=== PATIENT | male | born 1940 | race Caucasian/White ===

== ENCOUNTER 2016-12-10 07:27 | Inpatient (IN) | payer BC, OTHER ==
[~2016-12-10] VITALS: Ht 172.7 cm; Wt 76.6 kg
[2016-12-10] MEDS ORDERED: SODIUM CHLORIDE 0.9% 1,000 ML IV ONE (07:51)
[2016-12-10 08:54] LABS: CONDITION Y; Hematocrit 43.6 % (41.0-53.0); Hemoglobin 14.6 g/dL (13.5-17.5); Mean Corpuscular Hemoglobin 29.4 pg (28.0-32.0); Mean Corpuscular Hgb Conc. 33.5 g/dL (32.0-36.0); Mean Corpuscular Volume 87.6 fL (80.0-100.0); Mean Platelet Volume 7.9 fL (7.4-10.4); Platelet Count (auto) 269 10^3/uL (140-450); SUSPECT SEE PRINTOUT; White Blood Cell 18.9 10^3/uL (4.4-10.8)
[2016-12-10 09:04] LABS: Metamyelocytes % 0; Myelocytes % 0; Promyelocytes % 0; Reactive Lymphocytes 0
[2016-12-10 09:12] LABS: Albumin 3.4 g/dL (3.4-5.0); BUN/Creatinine Ratio 22.7; Calcium 8.4 mg/dL (8.5-10.1); Magnesium 2.2 mg/dL (1.6-2.6); Potassium 4.1 mmol/L (3.5-5.1)
[2016-12-10 09:15] LABS: Bilirubin, Total 0.6 mg/dL (0.2-1.0); Total Protein 7.3 g/dL (6.4-8.2)
[2016-12-10 09:30] LABS: Urine Bilirubin Negative (Negative); Urine Blood Negative /uL (Negative); Urine Color Yellow (Yellow); Urine Glucose Normal (Normal); Urine Nitrite Negative (Negative); Urine RBC 2 /hpf (0 - 3); Urine Urobilinogen Normal (Negative)
[2016-12-10 09:39] LABS: Urine Ketone 2+ (Negative)
[2016-12-10 10:21] LABS: Platelet Estimate Adequate
[2016-12-10] MEDS ORDERED: cefTRIAXone 1GM/50ML D5W 50 ML IV ONE (11:15)
[2016-12-10] MEDS ORDERED: NITROGLYCERIN 0.4 MG SL TAB SL PRN (12:00)
[2016-12-10] MEDS ORDERED: MORPHINE SULF INJ 2 MG/ML SYRINGE 1ML IV PRN (12:00)
[2016-12-10] MEDS: SOD CHL 0.45% 1,000 ML IV SCH (12:24)
[2016-12-10] MEDS: LEVOFLOXACIN 500MG 100 ML IV SCH (12:25)
[2016-12-10 13:55] VITALS: BP 140/74
[2016-12-10] MEDS ORDERED: ACETAMINOPHEN 325 MG TAB PO PRN (17:15)
[2016-12-10 17:23] VITALS: BP 133/65
[2016-12-10] MEDS: ENOXAPARIN SOD 40 MG/0.4 ML SYRINGE SC SCH (19:02)
[2016-12-10 21:51] VITALS: BP 127/70
[2016-12-11] MEDS: SOD CHL 0.45% 1,000 ML IV SCH ×2 (01:20→05:43)
[2016-12-11 04:54] VITALS: BP 101/63
[2016-12-11 06:48] LABS: Basophils # (auto) 0 uL; Basophils % (auto) 0.2 % (0.0-2.0); CONDITION Y; Eosinophils # (auto) 0 uL; Eosinophils % (auto) 0.4 % (0.0-7.0); Hemoglobin 13.4 g/dL (13.5-17.5); Lymphocytes # (auto) 1.1 uL; Mean Corpuscular Hemoglobin 29.4 pg (28.0-32.0); Mean Corpuscular Hgb Conc. 33.4 g/dL (32.0-36.0); Mean Corpuscular Volume 88.1 fL (80.0-100.0); Mean Platelet Volume 8.1 fL (7.4-10.4); Monocytes # (auto) 0.6 uL; Monocytes % (auto) 4.5 % (0.0-12.0); Neutrophils # (auto) 10.7 uL; Neutrophils % (auto) 85.9 % (37.0-80.0); Platelet Count (auto) 248 10^3/uL (140-450); White Blood Cell 12.4 10^3/uL (4.4-10.8)
[2016-12-11 07:11] LABS: BUN/Creatinine Ratio 19.4; Calcium 8.2 mg/dL (8.5-10.1); Magnesium 2.2 mg/dL (1.6-2.6); Potassium 3.9 mmol/L (3.5-5.1)
[2016-12-11 07:50] VITALS: BP 121/71
[2016-12-11 09:00] VITALS: BP 121/71
[2016-12-11] MEDS: LEVOFLOXACIN 500MG 100 ML IV SCH (10:03)
[2016-12-11] MEDS: ENOXAPARIN SOD 40 MG/0.4 ML SYRINGE SC SCH (10:03)
[2016-12-11 13:00] VITALS: BP 117/80
[2016-12-11] MEDS ORDERED: ALB5IS NEB (13:17)
[2016-12-11] MEDS ORDERED: POTA-167 PO (13:17)
[2016-12-11] MEDS ORDERED: TEMA30CA PO (13:17)
[2016-12-11] MEDS ORDERED: CARI-316 PO (13:17)
[2016-12-11] MEDS ORDERED: FLAXOIL3 OR (13:17)
[2016-12-11] MEDS ORDERED: TAMS0.4C36 PO (13:17)
[2016-12-11] MEDS ORDERED: FLUT250M2 INH (13:17)
[2016-12-11] MEDS ORDERED: MULTCHW OR (13:17)
[2016-12-11] MEDS ORDERED: LORA-622 PO (13:17)
[2016-12-11] MEDS ORDERED: LOSA50TA6 PO (13:17)
[2016-12-11 17:00] VITALS: BP 142/82
[2016-12-11 18:29] VITALS: BP 142/82
== END 2016-12-11 20:30 | disposition home health service (06) | DRG 195 ==
LOC: EDBD 07:27 → EDSEX 07:27 → ER 07:27 → TELE 07:28 → TELE-CENTR 14:34
PROVIDERS: ADMIT Internal Medicine; ATTEND Internal Medicine
DX: J18.1 Lobar pneumonia, unspecified organism (principal); G89.4 Chronic pain syndrome
CPT/HCPCS: 36415; 71010; 80048; 80053; 81001; 83735; 84443; 85007; 85025; 85027; 87040; 93005; 96361; 96365; 96366; J0696; J1956

== ENCOUNTER 2017-07-07 11:07 | Emergency (ER) | payer BC ==
[~2017-07-07] VITALS: Ht 170.2 cm; Wt 68.0 kg
[~2017-07-07 11:07] MED LIST: ALB5IS NEB; CARI-316 PO; FLAXOIL3 OR; FLUT250M2 INH; LORA-622 PO; LOSA50TA6 PO; MULTCHW OR; POTA-167 PO; TAMS0.4C36 PO; TEMA30CA PO
[2017-07-07] MEDS ORDERED: SODIUM CHLORIDE 0.9% 1,000 ML IV ONE (11:19)
[2017-07-07 12:09] LABS: Basophils # (auto) 0 uL; Basophils % (auto) 0.3 % (0.0-2.0); Eosinophils # (auto) 0 uL; Hematocrit 43.6 % (41.0-53.0); Hemoglobin 14.6 g/dL (13.5-17.5); Lymphocytes # (auto) 0.5 uL; Lymphocytes % (auto) 7.3 % (10.0-50.0); Mean Corpuscular Hgb Conc. 33.4 g/dL (32.0-36.0); Mean Corpuscular Volume 86.9 fL (80.0-100.0); Monocytes # (auto) 0.6 uL; Monocytes % (auto) 8.3 % (0.0-12.0); Neutrophils # (auto) 5.7 uL; Neutrophils % (auto) 84.1 % (37.0-80.0); Platelet Count (auto) 203 10^3/uL (140-450); Red Blood Cells 5.02 10^6/uL (4.5-5.90); Red Cell Distribution Width 16.3 % (11.8-14.3); White Blood Cell 6.8 10^3/uL (4.4-10.8)
[2017-07-07 12:21] LABS: INR 1.01 (0.9-1.15); Partial Thromboplastin Time 29.3 sec (22.64-33.71)
[2017-07-07 12:23] LABS: Alanine Aminotransferase 19 U/L (16-61); Albumin 3.4 g/dL (3.4-5.0); Anion Gap 7 (5-15); Aspartate Aminotransferase 21 U/L (15-37); BUN/Creatinine Ratio 15.9; Blood Urea Nitrogen 14 mg/dL (7-18); Calcium 8.9 mg/dL (8.5-10.1); Carbon Dioxide 30 mmol/L (21-32); Chloride 102 mmol/L (98-107); GFR African American 108 mL/min; GFR Non-African American 89 mL/min; Glucose 91 mg/dL (74-106); Magnesium 2.2 mg/dL (1.6-2.6); Potassium 4.4 mmol/L (3.5-5.1); Sodium 139 mmol/L (136-145)
[2017-07-07 12:29] LABS: Alkaline Phosphatase 60 U/L (45-117); Bilirubin, Total 0.3 mg/dL (0.2-1.0); Total Protein 7.3 g/dL (6.4-8.2)
[2017-07-07] MEDS ORDERED: cefTRIAXone 1GM/10ml IVPUSH 10 ML IV ONE (13:00)
[2017-07-07] MEDS ORDERED: POTA10TA51 PO (13:06)
[2017-07-07] MEDS ORDERED: LORA5SYP23 PO (13:06)
[2017-07-07] MEDS ORDERED: MULT-928 PO (13:06)
[2017-07-07] MEDS ORDERED: LOSA50TA6 PO (13:06)
[2017-07-07] MEDS ORDERED: FLUT500M2 INH (13:06)
[2017-07-07] MEDS ORDERED: methylPREDNISolone SOD SUCC 125 MG/2 ML VL IV ONE (13:45)
[2017-07-07] MEDS ORDERED: ALBUTEROL SULF 2.5 MG/0.5ML(0.5%) NEB SOLN NEB ONE (13:45)
[2017-07-07] MEDS ORDERED: IPRATROPIUM BROM 0.5 MG/2.5ML INH SOL NEB ONE (13:45)
[2017-07-07 16:06] LABS: Urine Bacteria NONE SEEN /hpf (None Seen); Urine Blood Negative /uL (Negative); Urine Mucus FEW (None Seen); Urine Specific Gravity 1.031 (1.001-1.035); Urine WBC 2 /hpf (0 - 3)
[2017-07-07 17:02] VITALS: BP 113/59
== END 2017-07-07 17:06 | disposition home or self-care (01) ==
LOC: EDBD 11:07 → ER 11:07
DX: J44.1 Chronic obstructive pulmonary disease with (acute) exacerbation (principal); J18.1 Lobar pneumonia, unspecified organism; R42 Dizziness and giddiness; Z79.899 Other long term (current) drug therapy
CPT/HCPCS: 36415; 70450; 71250; 74176; 80053; 81001; 82550; 83735; 83880; 84484; 85025; 85610; 85730; 87040; 93005; 94640; 96361; 96374; 96375; 99285; J2930; J7030

== ENCOUNTER 2017-07-09 18:38 | Inpatient (IN) | payer BC ==
[~2017-07-09] VITALS: Ht 170.2 cm; Wt 76.8 kg
[~2017-07-09 18:38] MED LIST changes: +FLUT500M2 INH; +LORA5SYP23 PO; +MULT-928 PO; +POTA10TA51 PO
[2017-07-09 19:45] LABS: Basophils # (auto) 0 uL; Basophils % (auto) 0.5 % (0.0-2.0); Eosinophils # (auto) 0 uL; Hematocrit 45.1 % (41.0-53.0); Hemoglobin 14.1 g/dL (13.5-17.5); Lymphocytes # (auto) 0.8 uL; Lymphocytes % (auto) 8.9 % (10.0-50.0); Mean Corpuscular Hemoglobin 29.1 pg (28.0-32.0); Mean Corpuscular Hgb Conc. 31.3 g/dL (32.0-36.0); Mean Corpuscular Volume 92.9 fL (80.0-100.0); Monocytes # (auto) 0.6 uL; Monocytes % (auto) 6.8 % (0.0-12.0); Neutrophils # (auto) 7.5 uL; Neutrophils % (auto) 83.8 % (37.0-80.0); Platelet Count (auto) 182 10^3/uL (140-450); Red Blood Cells 4.85 10^6/uL (4.5-5.90); Red Cell Distribution Width 17.9 % (11.8-14.3); White Blood Cell 8.9 10^3/uL (4.4-10.8)
[2017-07-09] MEDS ORDERED: methylPREDNISolone SOD SUCC 125 MG/2 ML VL IV ONE (20:00)
[2017-07-09] MEDS ORDERED: cefTRIAXone 1GM/10ml IVPUSH 10 ML IV ONE (20:00)
[2017-07-09 20:13] LABS: BUN/Creatinine Ratio 25.3; Bilirubin, Total 0.3 mg/dL (0.2-1.0); Calcium 8.2 mg/dL (8.5-10.1); Magnesium 2.8 mg/dL (1.6-2.6); Potassium 4.2 mmol/L (3.5-5.1); Total Protein 6.9 g/dL (6.4-8.2)
[2017-07-09] MEDS ORDERED: ASPirin 81 mg TAB PO ONE (20:30)
[2017-07-09 20:59] LABS: Urine Bacteria NONE SEEN /hpf (None Seen); Urine Blood Negative /uL (Negative); Urine Mucus FEW (None Seen); Urine Specific Gravity 1.029 (1.001-1.035); Urine WBC 2 /hpf (0 - 3)
[2017-07-09] MEDS ORDERED: MORPHINE SULFATE 4 MG/ML SYR/VIAL IV PRN (21:00)
[2017-07-09] MEDS ORDERED: SOD CHL 0.45% 1,000 ML IV ONE (21:00)
[2017-07-09] MEDS ORDERED: NITROGLYCERIN 0.4 MG SL TAB SL PRN (21:00)
[2017-07-09] MEDS ORDERED: LEVOFLOXACIN 500MG 100 ML IV ONE (21:56)
[2017-07-09 22:00] VITALS: BP 101/60
[2017-07-09 22:06] VITALS: BP 101/60
[2017-07-09 23:58] VITALS: BP 120/65
[2017-07-10] VITALS (7 sets, daily range): BP systolic 88–116; BP diastolic 53–69
[2017-07-10] MEDS: ALBUTEROL SULF 2.5 MG/0.5ML(0.5%) NEB SOLN NEB SCH ×4 (00:30→19:25)
[2017-07-10] MEDS: IPRATROPIUM BROM 0.5 MG/2.5ML INH SOL NEB SCH ×4 (06:55→19:25)
[2017-07-10 06:59] LABS: Basophils # (auto) 0 uL; Basophils % (auto) 0.1 % (0.0-2.0); Eosinophils # (auto) 0 uL; Hematocrit 39.9 % (41.0-53.0); Hemoglobin 13.2 g/dL (13.5-17.5); Lymphocytes # (auto) 0.3 uL; Lymphocytes % (auto) 4.4 % (10.0-50.0); Mean Corpuscular Hemoglobin 29.5 pg (28.0-32.0); Mean Corpuscular Hgb Conc. 33.2 g/dL (32.0-36.0); Monocytes # (auto) 0.1 uL; Monocytes % (auto) 1.8 % (0.0-12.0); Neutrophils # (auto) 6.4 uL; Neutrophils % (auto) 93.7 % (37.0-80.0); Nucleated Red Blood Cells % 0.1 %; Platelet Count (auto) 191 10^3/uL (140-450); Red Blood Cells 4.48 10^6/uL (4.5-5.90); Red Cell Distribution Width 16.5 % (11.8-14.3); White Blood Cell 6.8 10^3/uL (4.4-10.8)
[2017-07-10 07:08] LABS: Potassium 4.6 mmol/L (3.5-5.1)
[2017-07-10 07:09] LABS: INR 0.95 (0.9-1.15); Prothrombin Time 10.4 sec (9.37-12.3)
[2017-07-10 07:12] LABS: Albumin 2.8 g/dL (3.4-5.0); BUN/Creatinine Ratio 33.3; Calcium 8.5 mg/dL (8.5-10.1)
[2017-07-10 07:30] LABS: Bilirubin, Total 0.2 mg/dL (0.2-1.0); Total Protein 6.6 g/dL (6.4-8.2)
[2017-07-10] MEDS: LOSARTAN POTASSIUM 50 MG TAB PO SCH (10:00)
[2017-07-10] MEDS: TAMSULOSIN HYDROCHLORIDE 0.4 MG CAP PO SCH (11:44)
[2017-07-10] MEDS: MULTIPLE VITAMINS W/ MINERALS TAB PO SCH (11:44)
[2017-07-10] MEDS: PANTOPRAZOLE 40 MG TAB PO SCH (11:45)
[2017-07-10] MEDS: LORATADINE 10 MG TAB PO SCH (11:45)
[2017-07-10] MEDS: LEVOFLOXACIN 500MG 100 ML IV SCH (11:45)
[2017-07-10] MEDS: methylPREDNISolone SOD SUCC 40 MG/ML VL IV SCH ×3 (13:02→21:46)
[2017-07-11] MEDS: ALBUTEROL SULF 2.5 MG/0.5ML(0.5%) NEB SOLN NEB SCH ×4 (00:31→19:11)
[2017-07-11] MEDS: IPRATROPIUM BROM 0.5 MG/2.5ML INH SOL NEB SCH ×4 (00:31→19:11)
[2017-07-11 05:00] VITALS: BP 113/68
[2017-07-11] MEDS: methylPREDNISolone SOD SUCC 40 MG/ML VL IV SCH ×3 (05:47→22:29)
[2017-07-11] MEDS ORDERED: IODIXANOL 320MG/ML 100ML BTL IV ONE (07:12)
[2017-07-11] MEDS ORDERED: LIDOCAINE 2%HCL (LOCAL ANESTH.) INJ 20ML MDV ONE (07:12)
[2017-07-11] MEDS ORDERED: ASPirin 325 MG TAB PO ONE (07:15)
[2017-07-11 08:00] VITALS: BP 112/68
[2017-07-11 09:00] VITALS: BP_SYST 112; BP_SYST 115; BP_DIAS 68; BP_DIAS 70
[2017-07-11] MEDS ORDERED: ANGIOMAX 250 MG VIAL IV ONE (09:02)
[2017-07-11] MEDS ORDERED: VERAPAMIL 2.5MG/ML INJ 2ML VIAL IV ONE (09:02)
[2017-07-11] MEDS ORDERED: SODIUM CHL 0.9% 0 ML ONE (09:03)
[2017-07-11] MEDS ORDERED: MIDAZOLAM HCL 1MG/1ML-2 ML VIAL ONE (09:03)
[2017-07-11] MEDS ORDERED: fentaNYL CITRATE 100 MCG/2 ML VL ONE (09:03)
[2017-07-11] MEDS ORDERED: HEPARIN SODIUM (PORCINE) 5000 UNITS/ML 1ML VIAL ONE (09:23)
[2017-07-11] MEDS: PANTOPRAZOLE 40 MG TAB PO SCH (11:40)
[2017-07-11] MEDS: LEVOFLOXACIN 500MG 100 ML IV SCH (11:40)
[2017-07-11] MEDS: TAMSULOSIN HYDROCHLORIDE 0.4 MG CAP PO SCH (11:41)
[2017-07-11] MEDS: MULTIPLE VITAMINS W/ MINERALS TAB PO SCH (11:41)
[2017-07-11] MEDS: LOSARTAN POTASSIUM 50 MG TAB PO SCH (11:42)
[2017-07-11] MEDS: LORATADINE 10 MG TAB PO SCH (11:42)
[2017-07-11 12:44] LABS: Basophils # (auto) 0 uL; Basophils % (auto) 0.6 % (0.0-2.0); Eosinophils # (auto) 0 uL; Hematocrit 44.5 % (41.0-53.0); Hemoglobin 14.3 g/dL (13.5-17.5); Lymphocytes # (auto) 0.5 uL; Lymphocytes % (auto) 5.9 % (10.0-50.0); Mean Corpuscular Hemoglobin 28.7 pg (28.0-32.0); Mean Corpuscular Volume 89.7 fL (80.0-100.0); Monocytes # (auto) 0.3 uL; Monocytes % (auto) 3.9 % (0.0-12.0); Neutrophils # (auto) 7.6 uL; Neutrophils % (auto) 89.6 % (37.0-80.0); Nucleated Red Blood Cells % 0.3 %; Platelet Count (auto) 206 10^3/uL (140-450); Red Blood Cells 4.97 10^6/uL (4.5-5.90); Red Cell Distribution Width 16.4 % (11.8-14.3); White Blood Cell 8.4 10^3/uL (4.4-10.8)
[2017-07-11 13:03] LABS: BUN/Creatinine Ratio 26.6; Calcium 8.7 mg/dL (8.5-10.1); Potassium 4.8 mmol/L (3.5-5.1)
[2017-07-11] MEDS ORDERED: PRE5T GT (14:30)
[2017-07-11] MEDS ORDERED: LEVO500T21 PO (14:30)
[2017-07-11 17:00] VITALS: BP 129/77
[2017-07-12 05:12] VITALS: BP 123/71
[2017-07-12] MEDS: methylPREDNISolone SOD SUCC 40 MG/ML VL IV SCH ×2 (05:31→13:41)
[2017-07-12] MEDS: ALBUTEROL SULF 2.5 MG/0.5ML(0.5%) NEB SOLN NEB SCH ×3 (06:15→11:45)
[2017-07-12] MEDS: IPRATROPIUM BROM 0.5 MG/2.5ML INH SOL NEB SCH ×3 (06:15→11:45)
[2017-07-12 08:30] VITALS: BP 117/67
[2017-07-12] MEDS ORDERED: ASPirin 81 mg TAB PO SCH (10:00)
[2017-07-12] MEDS ORDERED: LEVOFLOXACIN 500 MG TAB PO SCH (10:00)
[2017-07-12] MEDS: LOSARTAN POTASSIUM 50 MG TAB PO SCH (11:04)
[2017-07-12] MEDS: MULTIPLE VITAMINS W/ MINERALS TAB PO SCH (11:05)
[2017-07-12] MEDS: LORATADINE 10 MG TAB PO SCH (11:05)
[2017-07-12] MEDS: PANTOPRAZOLE 40 MG TAB PO SCH (11:05)
[2017-07-12] MEDS: TAMSULOSIN HYDROCHLORIDE 0.4 MG CAP PO SCH (11:05)
[2017-07-12 12:43] VITALS: BP 138/75
[2017-07-12 12:53] VITALS: BP 117/61
== END 2017-07-12 15:05 | disposition home or self-care (01) | DRG 280 ==
LOC: EDUNIT# 18:38 → ER 18:38 → TELE 18:39 → TELE-WESTW 22:07
PROVIDERS: ADMIT Internal Medicine; ATTEND Internal Medicine
PROC: 4A023N7 Measurement of Cardiac Sampling and Pressure, Left Heart, Percutaneous Approach (ICD-10-PCS; principal; 2017-07-11)
PROC: B2111ZZ Fluoroscopy of Multiple Coronary Arteries using Low Osmolar Contrast (ICD-10-PCS; 2017-07-11)
DX: I21.4 Non-ST elevation (NSTEMI) myocardial infarction (principal); J18.1 Lobar pneumonia, unspecified organism; J96.01 Acute respiratory failure with hypoxia; R53.2 Functional quadriplegia; J44.1 Chronic obstructive pulmonary disease with (acute) exacerbation; J44.0 Chronic obstructive pulmonary disease with (acute) lower respiratory infection; I25.10 Atherosclerotic heart disease of native coronary artery without angina pectoris; I10 Essential (primary) hypertension; I45.10 Unspecified right bundle-branch block; N40.0 Benign prostatic hyperplasia without lower urinary tract symptoms; Z66 Do not resuscitate; Z79.51 Long term (current) use of inhaled steroids; Z79.899 Other long term (current) drug therapy; Z82.49 Family history of ischemic heart disease and other diseases of the circulatory system; Z87.891 Personal history of nicotine dependence; Z99.81 Dependence on supplemental oxygen
CPT/HCPCS: 36415; 36600; 71045; 80048; 80053; 81001; 82805; 83605; 83735; 83880; 84484; 85025; 85610; 87040; 87081; 93005; 93306; 93458; 94640; 96361; 96374; 96375; 99152; 99291; J1956; J2250; Q9967